=== PATIENT | female | born 1970 | race Caucasian/White ===

== ENCOUNTER 2024-08-17 08:13 | Outpatient (CLI) | payer BC | END 2024-08-17 08:14 | disposition home or self-care (01) | LOC: CSHCT 08:13 | PROVIDERS: ATTEND Internal Medicine | DX: C50.412 Malignant neoplasm of upper-outer quadrant of left female breast (principal); D50.8 Other iron deficiency anemias | CPT/HCPCS: 71260; 74177 ==